=== PATIENT | female | born 1950 | race Caucasian/White ===

== ENCOUNTER 2024-03-07 08:28 | Day surgery (SDC) | payer MEDICARE, OTHER, SELFPAY ==
[2024-03-07] VITALS (19 sets, daily range): BP systolic 114–172; BP diastolic 74–106; BMI 19.3
[2024-03-07 09:21] LABS: Hematocrit 38.7 % (37.0-47.0); Hemoglobin 13.5 g/dL (12.0-16.0); Mean Corp Hgb Conc. 34.9 g/dL (33.0-37.0); Mean Corpuscular Hgb 31.3 pg (27.0-31.0); Mean Corpuscular Volume 89.8 fL (81.0-99.0); Mean Platelet Volume 10.5 fL (7.4-10.4); Platelet Count 241 10^3/uL (130-400); Red Blood Cell Count 4.31 10^6/uL (4.20-5.40); Red Cell Dist. Width 12.5 % (11.5-14.5); White Blood Cell Count 6.7 10^3/uL (4.8-10.8)
[2024-03-07] MEDS: LOW STRENGTH ASPIRIN 243 MG PO (09:49)
[2024-03-07] MEDS: NSS 148 ML IV (09:49)
[2024-03-07] MEDS: NSS 1000 IV (13:27)
--- NOTE | 2024-03-07 13:45 | ITS.CL.CATH ---
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
Cardiac Catheterization
Procedure Report:
CARDIAC CATHETERIZATION REPORT
Date of Procedure: 03/07/2024
Referring: Sarabjit Marrufo DO
Indication: Progressive angina
HEMODYNAMIC DATA
AO: 146/82
LV: 146/10
LEFT VENTRICULOGRAPHY: Normal left ventricular wall motion with EF 68%. There is no evidence of mitral regurgitation.
CORONARY ANGIOGRAPHY
Dominance: Right
Left Main: Short without focal obstruction
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 The severity of these lesions and tandem are 40%, 60% and 50%. There is a 40% mid LAD lesion just distal to the second
diagonal takeoff. There are otherwise mild luminal irregularities in the LAD system
Circumflex: Normal
RCA: Dominant vessel with 60% proximal and 30% mid RCA stenosis. The RCA terminates with a medium sized PDA and a small posterolateral system
FloWire assessment: At the conclusion of the diagnostic study we proceeded with FloWire assessment of the LAD disease. A 5 Panamanian JL 4 guide was used. Heparin was used for anticoagulation. A [employer] wire was advanced into the distal LAD. iFR
measurements were 0.87, 0.87, and 0.87. These are all consistent with flow-limiting disease. Accordingly, decision was made to stent the mid LAD disease.
Angioplasty -A 3.0 x 28 Xience GUMARO was deployed to cover the 40%, 60% and 50% mid LAD lesions. The stent was deployed at 14 sal then postdilated with a 3.0 NC trek to 17 sal. Due to the length of the diseased segment, we opted to place a 2.75 x 8
distally overlapping Xience GUMARO which was deployed at 14 sal then postdilated with a 3.0 NC trek to 14 sal. The angiographic result was outstanding. There were no procedural complications.
Closure Device: None-the procedure was performed via the right radial artery. The Kennedy's test was normal prior to the procedure.
Radiation (mGy): 267
DAP (cm2.Gy): 21.5
Fluoroscopy time: 13.5 minutes
CONCLUSIONS
1: Systemic hypertension
2: Normal left ventricular function with EF 68%
3. Multivessel CAD as described-the mid LAD disease was flow-limiting prompting PCI. Recommend medical therapy for RCA disease
4. Successful stenting of mid LAD disease using overlapping 3.0 x 28 and 2.75 x 8 Xience GUMARO
5. Recommend dual antiplatelet therapy for 12 months and lifelong aspirin therapy
Copy to: Sarabjit Marrufo DO, Lyndsay Giles DO
Theron Rivera MD, FACC, [facility]
--- NOTE | 2024-03-07 16:11 | W.PN.UPDATE ---
Update Note
Progress Note Update
73 yo WF s/p PCI LAD (same day). She feels good, no cp, sob, kristofer diet, voiding, amb w/o dizziness, EKG SR no ST changes, R rad with TR band no HT. She will be on DAPT ASA/Plavix for at least 1 year. She will start atorvastatin 40mg daily. Activity
restrictions reviewed. Cardiac rehab c/s. She will f/u Dr. Marrufo in 2-4 weeks. She is for d/c home after 6pm if rad site stable.
CONCLUSIONS
1: Systemic hypertension
2: Normal left ventricular function with EF 68%
3. Multivessel CAD as described-the mid LAD disease was flow-limiting prompting PCI. Recommend medical therapy for RCA disease
4. Successful stenting of mid LAD disease using overlapping 3.0 x 28 and 2.75 x 8 Xience GUMARO
5. Recommend dual antiplatelet therapy for 12 months and lifelong aspirin therapy
Copy to: Sarabjit Marrufo DO, Lyndsay Mccray-DO Niels
[2024-03-07] MEDS: TYLENOL 650 MG PO (16:41)
== END 2024-03-07 18:00 | disposition home or self-care (01) ==
LOC: CATH 08:28
PROVIDERS: ATTENDING PHYSICIAN Internal Medicine Cardiovascular Disease; FAMILY PHYSICIAN Family Medicine; OTHER PHYSICIAN Internal Medicine Cardiovascular Disease
DX: I25.110 Atherosclerotic heart disease of native coronary artery with unstable angina pectoris (principal); I10 Essential (primary) hypertension; Z95.5 Presence of coronary angioplasty implant and graft; Z79.02 Long term (current) use of antithrombotics/antiplatelets; Z79.82 Long term (current) use of aspirin
CPT/HCPCS: 85027; 85347; 93005; 93458; 93571; C1725; C1769; C1874; C1894; C9600

== ENCOUNTER → 2024-05-29 13:25 | Day surgery (SDC) | payer MEDICARE, OTHER, SELFPAY ==
[2024-05-26 13:30] VITALS: BMI 18.7
[2024-05-29] VITALS (10 sets, daily range): BP systolic 133–147; BP diastolic 81–105; BMI 18.8
[2024-05-29] MEDS: NSS 144 ML IV (14:11)
[2024-05-29] MEDS: TYLENOL 650 MG PO (16:54)
--- NOTE | 2024-05-29 17:10 | ITS.CL.CATH ---
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
Cardiac Catheterization
Procedure Report:
CARDIAC CATHETERIZATION REPORT
Date of Procedure: 05/29/2024
Referring: Holden Marrufo DO
Indication: Persistent episodic chest pain following LAD stenting in February 2024 with known 60% proximal RCA stenosis
�
HEMODYNAMIC DATA
AO: 138/60
LV: 138/12
�
LEFT VENTRICULOGRAPHY: Normal left ventricular wall motion with EF 64%
�
CORONARY ANGIOGRAPHY
Dominance: Right
Left Main: Normal
LAD: 20% proximal LAD stenosis followed by a long widely patent stented segment with no restenosis. There is a focal 40% mid LAD stenosis spanning the takeoff of the medium sized second diagonal branch-this lesion is unchanged in appearance
compared with the February 2024 study. The remainder of the LAD system appears angiographically normal
Circumflex: Normal
RCA: Large dominant vessel with focal 60% proximal stenosis and otherwise trivial luminal irregularities
FloWire assessment: At the conclusion of the angiogram we proceeded with FloWire assessment of the proximal RCA stenosis. Heparin was used for anticoagulation. A 5 Cameroonian JR4 guide catheter was advanced to the right coronary ostium. A [employer]
pressure wire was advanced into the mid RCA. iFR measurements were 0.99, 0.99, and 0.98. These are all consistent with nonflow-limiting disease.
�
Closure Device: None-the procedure was performed via the right radial artery. Of note a 6 Cameroonian sheath was easily placed into the right radial artery. The patient experienced significant discomfort and clearly some spasm with passage of a 6
Cameroonian pigtail to perform the left ventriculogram. We then performed coronary angiography with a 5 Cameroonian JL 4 diagnostic and 5 Cameroonian JR4 guide catheter. Catheter manipulation was uneventful with the 5 Cameroonian catheters
�
Radiation (mGy): 44.2
DAP (cm2.Gy): 3.4
Fluoroscopy time: 2.8 minutes
�
CONCLUSIONS
1:�Normal left ventricular wall motion with EF 64%
2:�Widely patent LAD stent with residual 60% proximal RCA lesion-this lesion is nonflow limiting by IFR assessment. Based on the description of her pain this study shows that her pain is noncardiac. It is worse when lying down and therefore we
will add PPI. Imdur and amlodipine will be discontinued at her request. If symptoms persist consider formal GI evaluation with endoscopy
3. Continue dual antiplatelet therapy for 6 months from the index procedure in February. At that point I would stop Plavix and continue indefinite aspirin therapy
�
�
Copy to: Sarabjit Marrufo DO, Lyndsay Giles DO
�
Theron Rivera MD, [facility], [facility]
[2024-05-30 14:28] LABS: ACT-LR - POC > 397 Seconds (116-155)
== END | disposition home or self-care (01) ==
LOC: CATH 13:25
PROVIDERS: ATTENDING PHYSICIAN Internal Medicine Cardiovascular Disease; FAMILY PHYSICIAN Family Medicine; OTHER PHYSICIAN Internal Medicine Cardiovascular Disease
DX: I25.10 Atherosclerotic heart disease of native coronary artery without angina pectoris (principal); Z95.5 Presence of coronary angioplasty implant and graft; I10 Essential (primary) hypertension; E78.5 Hyperlipidemia, unspecified; K21.9 Gastro-esophageal reflux disease without esophagitis; Z79.82 Long term (current) use of aspirin; Z79.02 Long term (current) use of antithrombotics/antiplatelets
CPT/HCPCS: 93799; C1894; C1769; 85347; 93458; Q9967